=== PATIENT | female | born 1990 | race Caucasian/White ===

== ENCOUNTER 2017-10-31 05:30 | Day surgery (SDC) | payer OTHER ==
[~2017-10-31] VITALS: Ht 165.1 cm; Wt 108.9 kg
[~2017-10-31 05:30] MED LIST: AUGMENTIN875 MG PO; GLUCOPHAGE500 MG PO; NAPROXEN500 MG PO; PREDNISONE50 MG PO; SAFYRAL TABLET1 EACH PO
[2017-10-31 06:30] VITALS: BP 130/76
[2017-10-31 09:34] VITALS: BP 142/79
[2017-10-31 10:00] VITALS: BP 146/94
== END 2017-10-31 10:15 | disposition home or self-care (01) ==
LOC: SDC 05:30
PROC: 0CTPXZZ Resection of Tonsils, External Approach (ICD-10-PCS; principal; 2017-10-31)
DX: J35.01 Chronic tonsillitis (principal); F17.200 Nicotine dependence, unspecified, uncomplicated
CPT/HCPCS: 93005; J0131; J0330; J1100; J2250; J2405; J2765; J3010; J7120; Q0175